=== PATIENT | male | born 1990 | race Caucasian/White ===

== ENCOUNTER 2021-03-24 15:14 | Outpatient (REF) | payer MEDICAID, SELFPAY ==
[2021-03-24 16:03] LABS: Absolute Basophil Count 0.03 10^3/uL (0.0-0.2); Absolute Eosinophil Count 0.03 10^3/uL (0.0-0.7); Absolute Lymphocyte Count 1.28 10^3/uL (1.2-3.4); Absolute Monocyte Count 0.44 10^3/uL (0.1-0.8); Absolute Neutrophil Count 3.33 10^3/uL (1.2-6.7); Basophils % 0.6; Eosinophils % 0.6; HCT 46.6 % (40.0-50.0); HGB 15.2 g/dL (13.5-17.5); MCH 29.1 pg (27.0-33.0); MCHC 32.6 % (32.0-36.0); MCV 89.3 fL (80-95); MPV 11.6 fL (8.0-11.0); Monocytes % 8.6; Neutrophils % 65.2; Nucleated RBC 0 %; Platelet Count 296 10^3/uL (130-400); RBC 5.22 10^6/uL (4.36-5.78); RDW 11.3 % (11.8-14.1); WBC 5.11 10^3/uL (4.4-10.8)
[2021-03-24 16:19] LABS: ESR 1 mm/hr (0-15)
[2021-03-24 23:50] LABS: BUN 14 mg/dL (7-18); CREATININE 0.8 mg/dL (0.70-1.30); Calcium 9.6 mg/dL (8.5-10.1); Calculated LDL 95 mg/dL (<100); Cholesterol 163 mg/dL (<200); Glucose 64 mg/dL (74-106); HDL Cholesterol 51 mg/dL (40-60); Total Protein 7.8 g/dL (6.4-8.2); Triglyceride 88 mg/dL (<150)
[2021-03-24 23:51] LABS: ALT 37 U/L (16-63); AST 19 U/L (15-37); Albumin 4.8 g/dL (3.4-5.0); Alkaline Phosphatase 99 U/L (46-116); Anion Gap 7.8 mmol/L (3-11); Bilirubin, Total 0.7 mg/dL (0.2-1.0); CO2 33.2 mmol/L (21.0-32.0); Chloride 104 mmol/L (98-107); Potassium 4.6 mmol/L (3.5-5.1); Sodium 145 mmol/L (136-145)
== END 2021-03-24 15:15 | disposition home or self-care (01) ==
LOC: NCHCN 15:14
PROVIDERS: PCP Internal Medicine; Visit Provider Family Medicine
DX: R11.0 Nausea (principal); K58.9 Irritable bowel syndrome, unspecified; R10.9 Unspecified abdominal pain
CPT/HCPCS: 80053; 80061; 85652; 85025

== ENCOUNTER 2023-10-31 14:43 | Outpatient (REF) | payer MEDICAID, SELFPAY ==
[2023-10-31 21:34] LABS: Abs Immature Grans 0.01 10^3/uL (0.0-0.06); Absolute Basophil Count 0.04 10^3/uL (0.0-0.2); Absolute Eosinophil Count 0.04 10^3/uL (0.0-0.7); Absolute Lymphocyte Count 1.08 10^3/uL (1.2-3.4); Absolute Monocyte Count 0.51 10^3/uL (0.1-0.8); Absolute Neutrophil Count 1.77 10^3/uL (1.2-6.7); Basophils % 1.2 %; Eosinophils % 1.2 %; HCT 49.9 % (40.0-50.0); HGB 16.8 g/dL (13.5-17.5); Immature Grans % 0.3 %; Lymphocytes % 31.3 %; MCH 29.4 pg (27.0-33.0); MCHC 33.7 % (32.0-36.0); MCV 87 fL (80-95); MPV 10.8 fL (8.0-11.0); Monocytes % 14.8 %; Neutrophils % 51.2 %; Platelet Count 333 10^3/uL (130-400); RBC 5.71 10^6/uL (4.36-5.78); RDW 11.6 % (11.8-14.1); RDW-SD 36.9 fL; WBC 3.45 10^3/uL (4.4-10.8)
[2023-10-31 22:01] LABS: ALT 29 U/L (16-63); AST 21 U/L (15-37); Albumin 4.4 g/dL (3.4-5.0); Alkaline Phosphatase 74 U/L (46-116); Anion Gap 7.9 mmol/L (3-11); BUN 17 mg/dL (7-18); Bilirubin, Total 0.9 mg/dL (0.2-1.0); CO2 31.1 mmol/L (21.0-32.0); CREATININE 0.9 mg/dL (0.70-1.30); Calcium 9.6 mg/dL (8.5-10.1); Chloride 101 mmol/L (98-107); Glucose 80 mg/dL (74-106); Potassium 4.9 mmol/L (3.5-5.1); Sodium 140 mmol/L (136-145); Total Protein 7.7 g/dL (6.4-8.2)
== END 2023-10-31 14:44 | disposition home or self-care (01) ==
LOC: NCHCN 14:43
PROVIDERS: PCP Internal Medicine; Visit Provider Family Medicine
DX: F41.8 Other specified anxiety disorders (principal); K29.60 Other gastritis without bleeding
CPT/HCPCS: 80053; 84443; 85025

== ENCOUNTER 2024-09-10 15:32 | Outpatient (REF) | payer MEDICAID, SELFPAY ==
[2024-09-10 16:21] LABS: HCT 47.2 % (40.0-50.0); HGB 16.2 g/dL (13.5-17.5); MCH 29.4 pg (27.0-33.0); MCHC 34.3 % (32.0-36.0); MCV 86 fL (80-95); MPV 10.7 fL (8.0-11.0); Platelet Count 305 10^3/uL (130-400); RBC 5.51 10^6/uL (4.36-5.78); RDW 11.3 % (11.8-14.1); RDW-SD 35.3 fL; WBC 3.32 10^3/uL (4.4-10.8)
[2024-09-10 17:12] LABS: ALT 25 U/L (16-63); AST 19 U/L (15-37); Albumin 4.4 g/dL (3.4-5.0); Alkaline Phosphatase 72 U/L (46-116); Anion Gap 9.5 mmol/L (3-11); BUN 16 mg/dL (7-18); Bilirubin, Total 0.8 mg/dL (0.2-1.0); CO2 30.5 mmol/L (21.0-32.0); CREATININE 0.7 mg/dL (0.70-1.30); Calcium 9.7 mg/dL (8.5-10.1); Chloride 104 mmol/L (98-107); Estimated GFR 125.55 (mL/min/1.73m2); Glucose 76 mg/dL (74-106); Potassium 4.9 mmol/L (3.5-5.1); Sodium 144 mmol/L (136-145); Total Protein 7.4 g/dL (6.4-8.2)
[2024-09-16 12:56] LABS: Testosterone, Free 20.5 ng/dL (4.85-19.0); Testosterone, Total 841 ng/dL (240-950)
== END 2024-09-10 15:33 | disposition home or self-care (01) ==
LOC: NCHCN 15:32
PROVIDERS: PCP Internal Medicine; Visit Provider Family Medicine
DX: R53.83 Other fatigue (principal)
CPT/HCPCS: 80053; 84402; 84403; 85027; 84443